=== PATIENT | female | born 1975 | race Caucasian/White ===

== ENCOUNTER → 2017-10-11 | Outpatient (CLI) | payer BC ==
--- NOTE | 2017-10-12 08:10 | MM ---
Reason for exam: screening (asymptomatic). Last mammogram was performed 4 years and 5 months ago. History: Family history of breast cancer in maternal grandmother at age 40. Physical Findings: A clinical breast exam by your physician is recommended on an annual basis and results should be correlated with mammographic findings. MG 3D Screening Mammo W/Cad Bilateral CC and MLO view(s) were taken. Prior study comparison: May 09, 2013, bilateral digital screening mammo w/CAD. The breast tissue is extremely dense which could obscure a lesion on mammography. Focal asymmetry upper central right breast 4.7cm from nipple. This finding is changed when compared with previous exams. ASSESSMENT: Incomplete: need additional imaging evaluation, BI-RAD 0 RECOMMENDATION: Special view mammogram of the right breast. If lesion persists on supplemental views, image directed ultrasound is recommended. [facility] will attempt to contact patient to return for supplemental views and ultrasound if indicated.
== END | disposition home or self-care (01) ==
LOC: RADMAMWWP 12:43
PROVIDERS: ATTEND Obstetrics & Gynecology
DX: Z12.31 Encounter for screening mammogram for malignant neoplasm of breast (principal); Z80.3 Family history of malignant neoplasm of breast
CPT/HCPCS: 77063; 77067

== ENCOUNTER → 2018-05-02 | Outpatient (CLI) | payer BC ==
--- NOTE | 2018-05-02 14:39 | MM ---
Reason for exam: follow-up at short interval from prior study. Last mammogram was performed 6 months ago. History: Family history of breast cancer in maternal grandmother at age 40 and breast cancer in sister at age 44. Physical Findings: Nurse did not find any significant physical abnormalities on exam. MG 3D Diag Mammo W/Cad RT CC and MLO view(s) were taken of the right breast. Prior study comparison: October 26, 2017, right breast MG 3d work up w/cad RT. October 11, 2017, bilateral MG 3d screening mammo w/cad. The breast tissue is extremely dense which could obscure a lesion on mammography. No significant new findings when compared with previous films. These results were verbally communicated with the patient and result sheet given to the patient on 05/02/18. ASSESSMENT: Negative, BI-RAD 1 RECOMMENDATION: Return to routine screening mammogram schedule for both breasts. Back on schedule for October 2018. Manage patient on a clinical basis. If patient's lifetime risk of developing breast cancer is more than 20%, patient may qualify for screening MRI.
== END | disposition home or self-care (01) ==
LOC: RADMAMWWP 13:29
PROVIDERS: ATTEND Obstetrics & Gynecology
DX: R92.8 Other abnormal and inconclusive findings on diagnostic imaging of breast (principal)
CPT/HCPCS: 77061; 77065

== ENCOUNTER → 2019-11-11 | Outpatient (CLI) | payer BC ==
--- NOTE | 2019-11-12 09:46 | MM ---
Reason for exam: clinical finding. Last mammogram was performed 1 year and 6 months ago. History: Family history of breast cancer in maternal grandmother at age 40 and breast cancer in sister at age 42. Took hormonal contraceptives for 4 years beginning at age 22. Physical Findings: Nurse Summary: 1.5cm nodule in the right breast at 10 o'clock (nurse david). MG 3D Diag Mammo W/Cad [place] Bilateral CC, MLO, and XCCL view(s) were taken. Prior study comparison: May 02, 2018, right breast MG 3d diag mammo w/cad RT. October 26, 2017, right breast MG 3d work up w/cad RT. The breast tissue is extremely dense which could obscure a lesion on mammography. There is a 5mm lower inner quadrant middle depth oval stable circumscribed mass back to 2018. No suspicious abnormality. These results were verbally communicated with the patient and result sheet given to the patient on 11/11/19. ASSESSMENT: Incomplete: need additional imaging evaluation, BI-RAD 0 RECOMMENDATION: Ultrasound of the right breast. (palpable)
--- NOTE | 2019-11-12 09:48 | USB ---
Reason for exam: additional evaluation requested from abnormal screening. History: Family history of breast cancer in maternal grandmother at age 40 and breast cancer in sister at age 42. Took hormonal contraceptives for 4 years beginning at age 22. US Breast Limited RT Right limited breast ultrasound including focal area of concern, retroareolar and axilla demonstrates a 9 x 3 x 6mm oval, mixed lesion at 10 o'clock, well circumscribed, smooth margins, probable benign, probable fibroadenoma, 6 month follow up recommended. Dense tissue throughout. These results were verbally communicated with the patient and result sheet given to the patient on 11/11/19. ASSESSMENT: Probably benign, BI-RAD 3 RECOMMENDATION: Ultrasound of the right breast in 6 months. (10 o'clock)
== END | disposition home or self-care (01) ==
LOC: RADMAMWWP 09:00
PROVIDERS: ATTEND Obstetrics & Gynecology
DX: N63.10 Unspecified lump in the right breast, unspecified quadrant (principal); N63.20 Unspecified lump in the left breast, unspecified quadrant; R92.8 Other abnormal and inconclusive findings on diagnostic imaging of breast
CPT/HCPCS: 77062; 77066

== ENCOUNTER → 2020-03-23 | Outpatient (CLI) | payer BC ==
[2020-03-23 08:24] LABS: Basophils % (A) 1 %; Eosinophils # (A) 0.1 k/uL (0-0.7); Eosinophils % (A) 3 %; HCT 41.5 % (34.0-46.0); HGB 12.9 gm/dL (11.4-16.0); Lymphocytes # (A) 1.3 k/uL (1.0-4.8); Lymphocytes % (A) 25 %; MCH 28.8 pg (25.0-35.0); MCHC 31.1 g/dL (31.0-37.0); MCV 92.7 fL (80.0-100.0); Mean Platelet Volume 8.3; Monocytes # (A) 0.4 k/uL (0-1.0); Monocytes % (A) 7 %; Neutrophils # (A) 3.2 k/uL (1.3-7.7); Neutrophils % (A) 62 %; Platelet Count 200 k/uL (150-450); RBC 4.48 m/uL (3.80-5.40); RDW 12.7 % (11.5-15.5); WBC 5.2 k/uL (3.8-10.6)
== END | disposition home or self-care (01) ==
LOC: LABPAT 07:32
PROVIDERS: ATTEND Obstetrics & Gynecology
DX: Z01.818 Encounter for other preprocedural examination (principal); N92.0 Excessive and frequent menstruation with regular cycle
CPT/HCPCS: 36415; 85025

== ENCOUNTER 2020-03-30 06:59 | Day surgery (SDC) | payer BC ==
[2020-03-26 15:11] VITALS: BMI 21.3
[~2020-03-30 06:59] MED LIST: DEXAMETHASONE SOD PHOSPHATE 10 MG/ML 1 ML VIAL IV ONE; HYDROmorphone 0.5 MG/0.5 ML SYRINGE IVP PRN; LACTATED RINGERS 1,000 ML IV SCH; MIDAZOLAM 2 MG/2 ML VIAL IV PRN; ONDANSETRON 4 MG/2 ML VIAL IVP ONE; Pre Op ABX Message 1 EACH MISC MISCELLANE ONE; SCOPOLAMINE 1.5MG/72HR PATCH TRANSDERM ONE
[2020-03-30 07:37] LABS: Glucose,Whole Blood 111 mg/dL (75-99)
[2020-03-30] MEDS ORDERED: MIDAZOLAM 2 MG/2 ML VIAL ONE (08:13)
[2020-03-30] MEDS ORDERED: KETOROLAC 15 MG/ML 1 ML VIAL ONE (08:13)
[2020-03-30] MEDS ORDERED: PROPOFOL 10 MG/ML 20 ML VIAL IV ONE (08:13)
[2020-03-30] MEDS ORDERED: fentaNYL (PF) 50 MCG/ML 2 ML AMP ONE (08:13)
[2020-03-30] MEDS ORDERED: LIDOCAINE 1% INJ 10MG/ML (20 ML MDV) ONE (08:13)
[2020-03-30] MEDS ORDERED: LIDOCAINE 1%-EPI 1:100,000 20 ML VIAL SQ ONE (08:18)
--- NOTE | 2020-03-30 08:42 | P.OP ---
Preoperative Diagnosis: Menorrhagia Possible endometrial polyps Postoperative Diagnosis: Menorrhagia Procedure(s) Performed: Diagnostic hysteroscopy and NovaSure endometrial ablation Anesthesia: MAC Surgeon: Beatriz Harris Estimated Blood Loss (ml): 10 IV fluids (ml): 600 Urine output (ml): 25 Pathology: none sent Condition: stable Disposition: PACU Indications for Procedure: Menometrorrhagia and findings of possible endometrial polyp on ultrasound Operative Findings: The endometrium with clot and debris but no evidence of intracavitary lesion consistent with polyp. Complete desiccation postprocedure noted Description of Procedure: After the patient was met in the preoperative holding area and all questions were answered, she states the operating room where anesthetic was administered without incident. Appropriate timeout procedure was undertaken. She was in position, prepped and draped in the dorsal high lithotomy position. Bladder was drained for approximately 25 mL of clear urine. Exam under anesthetic was then performed. Speculum was placed in the vagina and the cervix was grasped anteriorly with a single-tooth tenaculum. Paracervical block with lidocaine was placed in the usual fashion. Uterus was sounded to 7.5 cm. The cervix was sequentially dilated with Hegar dilators to allow for passage of the diagnostic hysteroscope. The hysteroscope was introduced and the above findings were noted. Hysteroscope was removed and the cervix was further dilated to allow for placement of the NovaSure ablation device. The device was placed per protocol. Cavity assessment test was passed. Treatment cycle was engaged. Uterine length 4.5 cm, width 4.0 cm power 99 W for a treatment cycle 60 seconds. Following cessation the treatment cycle the device was removed. The hysteroscope was reintroduced and complete desiccation of the endometrium was noted. Hysteroscope was removed. Tenaculum was removed and the cervix was observed. No active bleeding was noted. Speculum was removed from the vagina. Patient was awoken from anesthetic without incident and transported to recovery area in good condition. All counts reported to me as correct by the operating room staff.
[2020-03-30 09:00] VITALS: RESP 16; TEMP 97.3
[2020-03-30 09:07] LABS: Glucose,Whole Blood 134 mg/dL (75-99)
[2020-03-30 09:44] LABS: Glucose,Whole Blood 134 mg/dL (75-99)
[2020-03-30 09:48] VITALS: BP 134/84; PULSE 68
== END 2020-03-30 09:55 | disposition home or self-care (01) ==
LOC: OR 06:59
PROVIDERS: ATTEND Obstetrics & Gynecology
DX: N92.0 Excessive and frequent menstruation with regular cycle (principal); N92.1 Excessive and frequent menstruation with irregular cycle; E11.9 Type 2 diabetes mellitus without complications; Z82.49 Family history of ischemic heart disease and other diseases of the circulatory system; Z83.3 Family history of diabetes mellitus; Z80.3 Family history of malignant neoplasm of breast; Z83.49 Family history of other endocrine, nutritional and metabolic diseases; Z87.891 Personal history of nicotine dependence; Z79.84 Long term (current) use of oral hypoglycemic drugs
CPT/HCPCS: 81025; 58563; J2250; J1100; J2405; J2001; J3010; J1885; J2704

== ENCOUNTER → 2020-05-14 | Outpatient (CLI) | payer BC ==
--- NOTE | 2020-05-14 10:08 | USB ---
Reason for exam: clinical finding. History: Family history of breast cancer in maternal grandmother at age 40 and breast cancer in sister at age 42. Took hormonal contraceptives for 4 years beginning at age 22. Indicated problem(s): palpable abnormality in the right breast. Physical Findings: Nurse Summary: 1cm 10 o'clock movable nodule (nurse dw). US Breast Limited RT Right limited breast ultrasound including focal area of concern, retroareolar and axilla demonstrates a 0.7 x 0.6 x 0.4cm oval, hypoechoic lesion at 9:30-10 o'clock, stable from 11/11/19, suspect debris filled cyst and fibrocystic breast tissue, a 1.9 x 1.2 x 0.9cm lymph node at the axilla and normal tissue within dense breast tissue at 10 o'clock BB. These results were verbally communicated with the patient and result sheet given to the patient on 05/14/20. ASSESSMENT: Benign, BI-RAD 2 RECOMMENDATION: Routine screening mammogram of both breasts in 6 months. Back on schedule for October 2020.
== END | disposition home or self-care (01) ==
LOC: RADUSWWP 08:16
PROVIDERS: ATTEND Obstetrics & Gynecology
DX: R92.8 Other abnormal and inconclusive findings on diagnostic imaging of breast (principal)

== ENCOUNTER → 2021-02-04 | Outpatient (CLI) | payer OTHER ==
--- NOTE | 2021-02-10 10:52 | MM ---
Reason for exam: screening (asymptomatic). Last mammogram was performed 1 year and 3 months ago. History: Family history of breast cancer in maternal grandmother at age 40 and breast cancer in sister at age 42. Took hormonal contraceptives for 4 years beginning at age 22. Physical Findings: A clinical breast exam by your physician is recommended on an annual basis and results should be correlated with mammographic findings. MG 3D Screening Mammo W/Cad Bilateral CC, MLO, and XCCL view(s) were taken. Prior study comparison: November 11, 2019, bilateral MG 3d diag mammo w/cad [place]. May 02, 2018, right breast MG 3d diag mammo w/cad RT. The breast tissue is extremely dense which could obscure a lesion on mammography. Stable benign calcifications. There is no discrete abnormality. No significant changes when compared with prior studies. ASSESSMENT: Benign, BI-RAD 2 RECOMMENDATION: Routine screening mammogram of both breasts in 1 year.
== END | disposition home or self-care (01) ==
LOC: RADMAMWWP 09:44
PROVIDERS: ATTEND Obstetrics & Gynecology
DX: Z12.31 Encounter for screening mammogram for malignant neoplasm of breast (principal); Z80.3 Family history of malignant neoplasm of breast
CPT/HCPCS: 77063; 77067

== ENCOUNTER → 2021-06-11 | Outpatient (CLI) | payer OTHER ==
[2021-06-11 16:16] LABS: Basophils # (A) 0.06 X 10*3/uL (0.00-0.10); Basophils % (A) 1.2 %; Eosinophils # (A) 0.09 X 10*3/uL (0.04-0.35); Eosinophils % (A) 1.7 %; HCT 40.1 % (37.2-46.3); HGB 12.9 g/dL (12.0-15.0); Lymphocytes # (A) 1.46 X 10*3/uL (0.90-5.00); Lymphocytes % (A) 28.2 %; MCH 30.2 pg (27.0-32.0); MCHC 32.2 g/dL (32.0-37.0); MCV 93.9 fL (80.0-97.0); Mean Platelet Volume 11.2 fL (9.5-12.2); Monocytes # (A) 0.49 X 10*3/uL (0.20-1.00); Monocytes % (A) 9.5 %; Neutrophils # (A) 3.06 X 10*3/uL (1.80-7.70); Platelet Count 199 X 10*3/uL (140-440); RBC 4.27 X 10*6/uL (4.10-5.20); RDW 12.3 % (11.5-14.5); WBC 5.18 X 10*3/uL (4.50-10.00)
[2021-06-11 18:06] LABS: Chol/HDL Ratio 1.62 Ratio; HDL Cholesterol 89.5 mg/dL (40.00-60.00); Triglycerides 43.6 mg/dL (0.00-149.00); VLDL Calculation 8.72 mg/dL (5.00-40.00)
[2021-06-11 18:37] LABS: LDL Cholesterol,Direct Reflex 47.9 mg/dL (0.00-129.00)
[2021-06-11 19:09] LABS: Albumin 4.4 g/dL (3.8-4.9); Albumin/Globulin Ratio 1.92 (1.60-3.17); Anion Gap 10.9 mmol/L (10.00-18.00); BUN/Creat Ratio 21.08 Ratio (12.00-20.00); Blood Urea Nitrogen 14.4 mg/dL (9.0-27.0); Calcium 9.1 mg/dL (8.7-10.3); Carbon Dioxide 22.5 mmol/L (20.0-27.5); Globulin 2.3 g/dL (1.6-3.3); Potassium 4.4 mmol/L (3.5-5.5); Total Bilirubin 0.3 mg/dL (0.30-1.20); Total Protein 6.7 g/dL (6.2-8.2)
[2021-06-11 21:16] LABS: Microalbumin Creatinine Ratio <30 mg/g Creat (0-30); Urine Creatinine 52.5 mg/dL (28.0-217.0)
[2021-06-11 21:24] LABS: C-Peptide 1.56 ng/mL (0.81-3.85)
== END | disposition home or self-care (01) ==
LOC: LABWHC1 10:18
PROVIDERS: ATTEND Internal Medicine
DX: Z00.01 Encounter for general adult medical examination with abnormal findings (principal); Z13.220 Encounter for screening for lipoid disorders; E11.9 Type 2 diabetes mellitus without complications
CPT/HCPCS: 36415; 80053; 80061; 82043; 82570; 83036; 83721; 84681; 85025

== ENCOUNTER → 2022-03-02 | Outpatient (CLI) | payer OTHER ==
--- NOTE | 2022-03-03 07:38 | MM ---
Reason for Exam: Screening (asymptomatic). Last mammogram was performed 1 year(s) and 1 month(s) ago. Patient History: Menarche at age 14. First Full-Term at age 27. Hormonal Contraceptives for 4 years from age 22 until age 26. Maternal grandmother had breast cancer, age 40. Sister had breast cancer, age 42. Risk Values: Isabella 5 year model risk: 1.5%. NCI Lifetime model risk: 18.2%. Prior Study Comparison: 05/02/2018 Right Diagnostic Mammogram, [facility]. 11/11/2019 Bilateral Diagnostic Mammogram, [facility]. 02/04/2021 Bilateral Screening Mammogram, [facility]. Tissue Density: The breast tissue is extremely dense which could obscure a lesion on mammography. Findings: Analyzed By CAD. Nodular density seen on the left MLO view far posteriorly 8.3 cm from the nipple requires additional evaluation. There is an additional nodular density seen in the medial aspect of the left breast on the CC view 4.5 cm from the nipple slice 6 of 49. Stable benign appearing calcifications right breast. Overall Assessment: Incomplete: need additional imaging evaluation, BI-RAD 0 Management: Diagnostic Mammogram of the left breast. A clinical breast exam by your physician is recommended on an annual basis and results should be correlated with mammographic findings. Electronically signed and approved by: Eliazar Rachel M.D. Radiologis
== END | disposition home or self-care (01) ==
LOC: RADMAMWWP 14:00
PROVIDERS: ATTEND Obstetrics & Gynecology
DX: Z12.31 Encounter for screening mammogram for malignant neoplasm of breast (principal)
CPT/HCPCS: 77063; 77067

== ENCOUNTER → 2022-10-27 | Outpatient (CLI) | payer OTHER ==
--- NOTE | 2022-10-27 15:06 | USB ---
Reason for Exam: Follow-up at short interval from prior study. Patient History: Menarche at age 14. First Full-Term at age 27. Hormonal Contraceptives for 4 years from age 22 until age 26. Maternal grandmother had breast cancer, age 40. Sister had breast cancer, age 42. Risk Values: Isabella 5 year model risk: 1.6%. NCI Lifetime model risk: 18.0%. Technique: Method: Targeted. Prior Study Comparison: 02/04/2021 Bilateral Screening Mammogram, [facility]. 03/02/2022 Bilateral MG 3D screening mammo w/cad, [facility]. 03/09/2022 Left MG 3D work up w/cad , [facility]. Findings: The upper inner quadrant of the left breast, the lower inner quadrant of the left breast, the axilla of the left breast and the retroareolar of the left breast were scanned. Imaged: Ultrasound imaging of: Area of concern, retroareolar region and axilla. Redemonstration of the * 6:00 3 cm from the nipple hyperechoic lesion measuring 6 x 4 mm, is stable. * 12:00 6 cm from the nipple hypoechoic suspected septated cyst measuring 8 x 6 mm is stable. * Area on prior at 11:00 is not definitively visualized. No new masses. Overall Assessment: Probably benign, BI-RAD 3 Management: Diagnostic Breast Ultrasound of the left breast in 6 months. Diagnostic Mammogram of both breasts in 6 months. Ultrasound imaging of the left breast with yearly mammogram in 6 months. A clinical breast exam by your physician is recommended on an annual basis and results should be correlated with mammographic findings. This exam should not preclude additional follow-up of suspicious palpable abnormalities. Results were given to the patient verbally at the time of exam. Electronically signed and approved by: Levon Segura DO
== END | disposition home or self-care (01) ==
LOC: RADUSWWP 14:18
PROVIDERS: ATTEND Obstetrics & Gynecology
DX: R92.8 Other abnormal and inconclusive findings on diagnostic imaging of breast (principal); Z80.3 Family history of malignant neoplasm of breast

== ENCOUNTER → 2022-11-16 | Outpatient (CLI) | payer OTHER | END | disposition home or self-care (01) | LOC: LABWHC1 14:14 | PROVIDERS: ATTEND Internal Medicine Gastroenterology | DX: R19.7 Diarrhea, unspecified (principal); R63.4 Abnormal weight loss; R12 Heartburn; Z87.891 Personal history of nicotine dependence | CPT/HCPCS: 36415; 85652; 86140 ==

== ENCOUNTER → 2024-07-25 | Outpatient (CLI) | payer OTHER ==
--- NOTE | 2024-07-28 09:30 | MM ---
Reason for Exam: Screening (asymptomatic). Last mammogram was performed 2 year(s) and 5 month(s) ago. Patient History: Menarche at age 14. First Full-Term at age 27. Hormonal Contraceptives for 4 years from age 22 until age 26. Maternal grandmother had breast cancer, age 40. Sister had breast cancer, age 42. Risk Values: Isabella 5 year model risk: 1.7%. NCI Lifetime model risk: 17.5%. Prior Study Comparison: 02/04/2021 Bilateral Screening Mammogram, [facility]. 03/02/2022 Bilateral MG 3D screening mammo w/cad, [facility]. 03/09/2022 Left MG 3D work up w/cad , [facility]. Tissue Density: The breasts are extremely dense, which lowers the sensitivity of mammography. Analyzed By CAD. Overall Assessment: Negative, BI-RAD 1 Management: Screening Mammogram of both breasts in 1 year. Electronically signed and approved by: Sohail Aguayo M.D.
== END | disposition home or self-care (01) ==
LOC: RADMAMWWP 16:01
PROVIDERS: ATTEND Obstetrics & Gynecology
DX: Z12.31 Encounter for screening mammogram for malignant neoplasm of breast (principal); Z80.3 Family history of malignant neoplasm of breast; R92.343 Mammographic extreme density, bilateral breasts
CPT/HCPCS: 77063; 77067